=== PATIENT | female | born 1975 | race Caucasian/White ===

== ENCOUNTER 2017-01-26 10:48 | Emergency (ER) | payer OTHER ==
[~2017-01-26] VITALS: Ht 154.9 cm; Wt 57.5 kg
[~2017-01-26 10:48] MED LIST: ASCO250T2 PO; CALCIUM PO; CHOL500015 PO; DEPO-PROVERA INJ; GARL400T5 PO; HERBAL LAXATIVE PO; MAGN PO; PEDI100T PO; ZINC PO; [UNRECOGNIZED DRUG - OTHER] PO
[2017-01-26] MEDS ORDERED: SODIUM CHLORIDE 0.9% 1,000 ML IV ONE (11:23)
[2017-01-26] MEDS ORDERED: SODIUM CHLORIDE FLUSH 10ML SYR IVF ONE (11:30)
[2017-01-26] MEDS ORDERED: SODIUM CHLORIDE 0.9% 1,000ML IVBOLUS ONE (11:30)
[2017-01-26 11:52] LABS: HEMATOCRIT 42.7 % (34.6-47.8); HEMOGLOBIN 14.5 g/dL (11.7-16.4); WHITE BLOOD COUNT 4.4 x10^3/uL (3.4-10)
[2017-01-26] MEDS ORDERED: ONDANSETRON 2MG/ML, 2ML ONE (12:16)
[2017-01-26] MEDS ORDERED: ONDANSETRON ODT 4 MG ONE (12:18)
[2017-01-26 12:24] LABS: BLOOD UREA NITROGEN 15 mg/dL (7-18)
[2017-01-26 12:29] LABS: ASPARTATE AMINO TRANSFERASE 21 U/L (15-37)
[2017-01-26 12:30] LABS: IS PT STATUS REG ER OR PRE ER? YES
[2017-01-26] MEDS ORDERED: ONDANSETRON ODT 4 MG PO ONE (12:30)
[2017-01-26 13:21] VITALS: BP 145/80
== END 2017-01-26 13:39 | disposition home or self-care (01) ==
LOC: ED 13:05
DX: R55 Syncope and collapse (principal); R53.1 Weakness; I10 Essential (primary) hypertension; Z90.710 Acquired absence of both cervix and uterus; Z90.49 Acquired absence of other specified parts of digestive tract
CPT/HCPCS: 36415; 80053; 81003; 83605; 83735; 84436; 84443; 84484; 85025; 93005; 96360; 99285; J7030; Q0162

== ENCOUNTER 2018-02-24 11:27 | Emergency (ER) | payer OTHER ==
[~2018-02-24] VITALS: Ht 154.9 cm; Wt 60.0 kg
[2018-02-24] MEDS ORDERED: DIPHENHYDRAMINE 12.5MG/5ML, 10ML UDC ONE (11:52)
[2018-02-24] MEDS ORDERED: ONDANSETRON ODT 4 MG PO ONE (12:30)
[2018-02-24 12:35] LABS: BASOPHILS # (AUTO) 0.02 x10^3/uL (0-0.1); BASOPHILS % (AUTO) 0 % (0-1); EOSINOPHILS % (AUTO) 2 % (1-7); LYMPHOCYTES # (AUTO) 0.99 x10^3/uL (1-3.4); LYMPHOCYTES % (AUTO) 24 % (22-44); MD NO; MEAN CORPUSCULAR HEMOGLOBIN 32.6 pg (27.0-34.8); MEAN CORPUSCULAR HGB CONC 34.9 g/dL (32.4-35.8); MEAN CORPUSCULAR VOLUME 93.3 fL (80-100); MEAN PLATELET VOLUME 8.4 fL (7.4-10.4); MONOCYTES # (AUTO) 0.31 x10^3/uL (0.2-0.8); MONOCYTES % (AUTO) 8 % (2-9); NEUTROPHILS # (AUTO) 2.68 x10^3/uL (1.8-6.8); NEUTROPHILS % (AUTO) 66 % (42-75); PLATELET COUNT 249 x10^3/uL (130-400); RED BLOOD COUNT 4.57 x10^6/uL (3.82-5.3)
[2018-02-24] MEDS ORDERED: ONDANSETRON ODT 4 MG ONE (12:40)
[2018-02-24 12:45] LABS: ALANINE AMINOTRANSFERASE 40 U/L (12-78); ALBUMIN 4.2 g/dL (3.4-5.0); ANION GAP 8 mmol/L (5-15); CALCIUM 9.3 mg/dL (8.5-10.1); CHLORIDE 106 mmol/L (98-107); CREATININE 0.78 mg/dL (0.55-1.02)
[2018-02-24 12:48] LABS: ALKALINE PHOSPHATASE 78 U/L (45-117); BILIRUBIN,TOTAL 0.4 mg/dL (0.2-1.0); TOTAL PROTEIN 8.4 g/dL (6.4-8.2)
[2018-02-24 12:52] LABS: MICROSCOPIC AUTO
[2018-02-24 13:02] LABS: CULTURE INDICATED? NO
[2018-02-24 13:28] VITALS: BP 144/72
== END 2018-02-24 14:04 | disposition home or self-care (01) ==
LOC: ED 12:11
DX: R53.1 Weakness (principal); I10 Essential (primary) hypertension
CPT/HCPCS: 36415; 76830; 80053; 81001; 85025; 93005; 99285

== ENCOUNTER → 2018-02-26 | Outpatient (CLI) | payer OTHER | END | disposition home or self-care (01) | LOC: CFH 14:38 | PROVIDERS: ATTEND Obstetrics & Gynecology Female Pelvic Medicine and Reconstructive Surgery | DX: N63.10 Unspecified lump in the right breast, unspecified quadrant (principal); N60.01 Solitary cyst of right breast | CPT/HCPCS: 77066 ==

== ENCOUNTER → 2018-03-27 | Outpatient (CLI) | payer OTHER | END | disposition home or self-care (01) | LOC: CFH 14:19 | PROVIDERS: ATTEND Family Medicine | DX: M54.5 Low back pain (principal); N39.46 Mixed incontinence | CPT/HCPCS: 72148 ==

== ENCOUNTER → 2020-07-22 | Outpatient (CLI) | payer OTHER ==
[~2020-07-22] MED LIST changes: +ASCO250T12 PO; -ASCO250T2 PO; -GARL400T5 PO; +GARL400T8 PO
== END | disposition home or self-care (01) ==
LOC: CFH 13:56
PROVIDERS: ATTEND Obstetrics & Gynecology Female Pelvic Medicine and Reconstructive Surgery
DX: Z12.31 Encounter for screening mammogram for malignant neoplasm of breast (principal); Z12.39 Encounter for other screening for malignant neoplasm of breast; N63.10 Unspecified lump in the right breast, unspecified quadrant; N60.02 Solitary cyst of left breast; N60.01 Solitary cyst of right breast
CPT/HCPCS: 76641; 77063; 77067

== ENCOUNTER → 2020-07-29 | Outpatient (CLI) | payer OTHER | END | disposition home or self-care (01) | LOC: CFH 11:52 | PROVIDERS: ATTEND Obstetrics & Gynecology Female Pelvic Medicine and Reconstructive Surgery | DX: N63.11 Unspecified lump in the right breast, upper outer quadrant (principal) | CPT/HCPCS: 76642; 77065 ==

== ENCOUNTER 2020-07-31 06:53 | Outpatient (CLI) | payer OTHER ==
[2020-07-31] MEDS ORDERED: LIDOCAINE 1%, 20ML ONE (07:30)
== END 2020-07-31 23:59 | disposition home or self-care (01) ==
LOC: CFH 06:53
PROVIDERS: ATTEND Obstetrics & Gynecology Female Pelvic Medicine and Reconstructive Surgery
DX: N63.11 Unspecified lump in the right breast, upper outer quadrant (principal); N63.13 Unspecified lump in the right breast, lower outer quadrant; D24.1 Benign neoplasm of right breast
CPT/HCPCS: 19083; 19084; 77065; 88305; J3490